=== PATIENT | male | born 1990 | race Caucasian/White ===

== ENCOUNTER 2018-12-06 20:25 | Emergency (ER) | payer BC ==
--- NOTE | 2018-12-06 21:02 | EDPHY ---
H & P Time Seen by Provider: 12/06/18 21:00 HPI/ROS: Chief complaint: Possible left shoulder dislocation History of present illness: This is a 28-year-old male who presents to the emergency department for possible left shoulder dislocation. He was doing lifts overhead press when he felt his shoulder pop out of place. When he dropped the bar and moved his arm he felt a pop back into place. He then attempted to move his arm again and he felt a pop out and then quickly popped back in. Since then he has had mild soreness. No report of direct trauma. No abnormal coolness or paresthesias in the left arm. No other complaints. Smoking Status: Never smoked Physical Exam: General: Alert, nontoxic. Skin: No abnormal lesions to the left upper extremity. Musculoskeletal: Mild diffuse soreness to the left shoulder. I do not range it. The rest of the left upper extremities unremarkable. Vascular: Radial pulse 2 +. Neurologic: Sensation intact in the left arm. Constitutional: Initial Vital Signs Temperature (C) 37.5 C 12/06/18 20:33 Heart Rate 73 12/06/18 20:33 Respiratory Rate 16 12/06/18 20:33 Blood Pressure 148/91 H 12/06/18 20:33 O2 Sat (%) 95 12/06/18 20:33 O2 Delivery Mode Room Air Allergies/Adverse Reactions: No Known Allergies Allergy (Unverified 12/06/18 20:36) Home Medications: Medication Instructions Recorded NK [No Known Home Meds] 12/06/18 MDM/Departure - MDM Imaging: I viewed and interpreted images myself ED Course/Re-evaluation: Patient seen under the supervision of my secondary supervising physician Dr. Pedrito Mccarty. Patient presents for left shoulder injury. It does sound like he has dislocated or subluxed left shoulder. X-rays unremarkable. He is placed in a sling. Home care is discussed. He is to follow up with Orthopedics for recheck. Return precautions are given. Patient voiced understanding and agreement with plan. Differential Diagnosis: Included but not limited to dislocation, subluxation, sprain or strain - Depart Disposition: Home, Routine, Self-Care Clinical Impression: Shoulder dislocation Qualifiers: Encounter type: initial encounter Laterality: left Qualified Code(s): S43.005A - Unspecified dislocation of left shoulder joint, initial encounter Condition: Good Instructions: Shoulder Dislocation (ED) Additional Instructions: Follow-up with orthopedics for continued evaluation and care Ice the injury, 20 min on, 3 times daily for the next 3 days Wear sling until seen by Orthopedics If symptoms worsen or new symptoms develop return to the emergency room for recheck Referrals: NONE *PRIMARY CARE P,. [Primary Care Provider] - As per Instructions Jamaal aLnier MD [Medical Doctor] - As per Instructions Lelo Gee MD [Medical Doctor] - As per Instructions
[2018-12-06 21:23] VITALS: BP 135/79
== END 2018-12-06 21:26 | disposition home or self-care (01) ==
DX: S43.005A Unspecified dislocation of left shoulder joint, initial encounter (principal); X50.0XXA Overexertion from strenuous movement or load, initial encounter; Y93.B9 Activity, other involving muscle strengthening exercises; Y92.89 Other specified places as the place of occurrence of the external cause
CPT/HCPCS: A4565